=== PATIENT | male | born 1945 | race Caucasian/White ===

== ENCOUNTER 2020-04-23 12:16 | Emergency (ER) | payer MEDICARE, OTHER, SELFPAY ==
[2020-04-23 12:26] VITALS: BP 147/77; PULSE 74; RESP 18; TEMP 36.7; O2SAT 100
--- NOTE | 2020-04-23 12:54 | ED.GENADULT ---
HPI - General Adult General Chief complaint: Unspecified Stated complaint: swollen epiglottis Time Seen by Provider: 04/23/20 12:25 History of Present Illness HPI narrative: Patient is a 75-year-old male who presents to the ER with a swollen uvula. Reports its been swollen for 2 days. Worse yesterday than today. Causes discomfort with swallowing and feels like he needs to clear his throat frequently. Denies any other symptoms including sinus congestion/sore throat/productive cough/dyspnea. Reports son is a sick contact who recently tested negative for COVID-19. Otherwise no other sick contacts. No actual difficulty breathing or swallowing. Related Data Home Medications Medication Instructions Recorded Confirmed aspirin 81 mg tablet,delayed 81 mg PO DAILY 08/21/19 01/23/20 release atorvastatin 40 mg tablet 40 mg PO DAILY 08/21/19 01/23/20 carvedilol 6.25 mg tablet 6.25 mg PO Q12H 08/21/19 01/23/20 rivaroxaban 20 mg tablet 20 mg PO QPM 08/21/19 01/23/20 Allergies Allergy/AdvReac Type Severity Reaction Status Date / Time No Known Allergies Allergy Unknown Verified 04/23/20 12:29 Review of Systems Constitutional: Constitutional: Denies body ache(s), Denies chills and Denies fever(s) ENT: Denies sinus pain and Denies sore throat Comments: Swollen uvula Respiratory: Respiratory: Denies cough, Denies dyspnea and Denies stridor PMFSH Past Medical History Medical History (Updated 04/23/20 @ 13:31 by Garry Tim MD) CAD (coronary artery disease) Essential hypertension History of left heart catheterization Paroxysmal A-fib Pure hypercholesterolemia Type 2 diabetes mellitus Family History Family History (System 09/04/19 @ 08:01 by Elvira Ferrer) Father Diabetes mellitus Family history of congestive heart failure, Onset Age: 94 Family history of hearing loss, Onset Age: 94 Family history of cardiovascular disease Sibling Family history of alcoholism Family history of malignant neoplasm Family history of pancreatic cancer Mother Family history of cardiovascular disease Family history of congestive heart failure, Onset Age: 72 Other Cerebrovascular accident Family history of arthritis Social History Social History (System 09/04/19 @ 08:01 by Elvira Ferrer) Smoking status: Former smoker Smoking end date: 04/24/15 Alcohol intake: current Exam Narrative: Exam Narrative: GENERAL: Well-appearing, well-nourished, and in no acute distress. HEAD: Normocephalic, atraumatic. ENT: Mucous membranes moist. No pharyngeal erythema or tonsillar exam. Uvula midline but edematous. CHEST: Clear to auscultation. No respiratory distress. HEART: Regular rate and rhythm. Normal peripheral pulses. EXTREMITIES: Normal range of motion. No edema. NEURO: Alert and oriented x3. PSYCH: Normal mood and affect. Course Course Emergency Course: Patient received Decadron and was swab for Covid. Discharge home. Vital Signs Vital signs: Vital Signs Temperature 98.0 F 04/23/20 12:26 Pulse Rate 74 04/23/20 12:26 Respiratory Rate 18 04/23/20 12:26 Blood Pressure 147/77 H 04/23/20 12:26 Pulse Oximetry 100 04/23/20 12:26 Temperature 98.0 F 04/23/20 12:26 Pulse Rate 74 04/23/20 12:26 Respiratory Rate 18 04/23/20 12:26 Blood Pressure 147/77 H 04/23/20 12:26 Pulse Oximetry 100 04/23/20 12:26 Medical Decision Making Vital Signs Vital Signs: Vital Signs Temperature 98.0 F 04/23/20 12:26 Pulse Rate 74 04/23/20 12:26 Respiratory Rate 18 04/23/20 12:26 Blood Pressure 147/77 H 04/23/20 12:26 Pulse Oximetry 100 04/23/20 12:26 Temperature 98.0 F 04/23/20 12:26 Pulse Rate 74 04/23/20 12:26 Respiratory Rate 18 04/23/20 12:26 Blood Pressure 147/77 H 04/23/20 12:26 Pulse Oximetry 100 04/23/20 12:26 Lab Data Labs: Lab Results 04/23/20 Range/Units 13:01 SARS-CoV-2 RNA (RT-PCR) Pending Discharge
[2020-04-23 14:14] VITALS: BP 124/69; PULSE 69; RESP 20; O2SAT 99
[2020-04-23 21:48] LABS: SARS-CoV-2 RNA PCR Negative
== END 2020-04-23 14:17 | disposition home or self-care (01) ==
PROVIDERS: Emergency Provider Emergency Medicine; PCP Internal Medicine
DX: K12.2 Cellulitis and abscess of mouth (principal); Z20.828 Contact with and (suspected) exposure to other viral communicable diseases; I25.10 Atherosclerotic heart disease of native coronary artery without angina pectoris; I10 Essential (primary) hypertension; I48.91 Unspecified atrial fibrillation; E78.00 Pure hypercholesterolemia, unspecified; E11.9 Type 2 diabetes mellitus without complications; Z79.82 Long term (current) use of aspirin; Z79.01 Long term (current) use of anticoagulants; Z79.84 Long term (current) use of oral hypoglycemic drugs
CPT/HCPCS: 87635; 99283; C9803; J8540; U0003

== ENCOUNTER → 2021-03-15 10:52 | Outpatient (CLI) | payer MEDICARE, OTHER, SELFPAY ==
[2021-03-15 18:36] LABS: SARS-CoV-2 RNA PCR Negative
== END ==
PROVIDERS: PCP Internal Medicine; Visit Provider Internal Medicine
DX: J06.9 Acute upper respiratory infection, unspecified (principal); Z20.822 Contact with and (suspected) exposure to COVID-19
CPT/HCPCS: C9803; U0003; U0005

== ENCOUNTER → 2021-04-01 10:33 | Outpatient (CLI) | payer MEDICARE, OTHER, SELFPAY ==
--- NOTE | ~2021-04-01 | XR_ITS ---
EXAMINATION: XR chest 2V DATE: 04/01/2021 11:21 INDICATION: Anterior and central chest pain and chronic cough. TECHNIQUE: PA and lateral views of the chest were obtained. COMPARISON: Chest radiograph dated 11/26/2015 FINDINGS: The lungs remain clear with no focal airspace opacities, pulmonary edema, pleural effusion or pneumot horax. Mild cardiomegaly. There are bridging osteophytes at multiple levels in the spine, consistent with diffuse idiopathic skeletal hyperostosis (DISH). Old healed posterior left sixth rib fracture. IMPRESSION: 1. Cardiomegaly. Reviewed, dictated and finalized at location B. [facility] [employer] IMPRESSION: 1. Cardiomegaly.
== END ==
PROVIDERS: PCP Internal Medicine; Visit Provider Internal Medicine
DX: R05.9 Cough, unspecified (principal); I51.7 Cardiomegaly
CPT/HCPCS: 71046

== ENCOUNTER 2021-08-27 11:40 | Outpatient (CLI) | payer MEDICARE, OTHER, SELFPAY ==
--- NOTE | ~2021-08-27 | US_ITS ---
EXAMINATION: US pelvic limited INDICATION: Abnormal frequency of micturition TECHNIQUE: Targeted ultrasound of the bladder is performed. COMPARISON: None available FINDINGS: Prevoid bladder volume was 417.4 cc. Postvoid volume was 98.0 cc. The prostate is enlarged. There is mild wall thickening of the urinary bladder. Bilateral ureteral jets are seen. IMPRESSION: 1. Abnormal post void residual. 2. Mild wall thickening of the bladder could reflect cystitis or chronic outlet obstruction. Reviewed, dictated and finalized at location B.
== END 2021-08-27 11:41 | disposition home or self-care (01) ==
PROVIDERS: PCP Internal Medicine; Visit Provider Internal Medicine
DX: R35.0 Frequency of micturition (principal); R93.41 Abnormal radiologic findings on diagnostic imaging of renal pelvis, ureter, or bladder
CPT/HCPCS: 76857

== ENCOUNTER 2021-09-27 06:55 | Outpatient (CLI) | payer MEDICARE, OTHER, SELFPAY ==
--- NOTE | ~2021-09-27 | CT_ITS ---
EXAMINATION: CT abdomen pelvis wo/w con DATE: 09/27/2021 07:38 INDICATION: Microscopic hematuria TECHNIQUE: Computed tomography (CT) of the abdomen and pelvis was performed without and with 130 cc O mnipaque 300 intravenous contrast. The dose-length product was 1537.93 mGy-cm. Automated exposure con trol and iterative reconstruction technique were employed. KUB perform. COMPARISON: CT dated 02/21/2019. FINDINGS: There is a 4 mm left lower lobe nodule, unchanged from prior examination allowing for diffe rences of technique. There is calcified granuloma right lower lobe. The liver, spleen, pancreas, adrenal glands are unremarkable. Severely enlarged prostate gland. There is mild nonspecific stranding of the kidneys which is chronic. There are small low-density lesions i n the right kidney, most likely benign cysts. No ureteral stones or hydronephrosis. Ureters are addy l in course and caliber. Bladder wall is mildly thickened, likely due to underdistention. There is a punctate 2 mm nonobstructing right renal stone at the lower pole. Gallbladder is present. Nonobstruct leanna bowel gas pattern. Normal appendix. No significant vascular abnormality. No lymphadenopathy. 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 There are chronic compression fractures of L2 and L5. Generalized os teopenia. IMPRESSION: 1. Punctate 2 mm nonobstructing right nephrolithiasis. 2: Stable 4 mm left lower lobe nodule, likely benign. 3: Enlarged prostate gland. Reviewed, dictated and finalized at location B.
--- NOTE | ~2021-09-27 | XR_ITS ---
XR abdomen/kub 1V 09/27/2021 07:18 INDICATION: Microscopic hematuria TECHNIQUE: KUB COMPARISON: None FINDINGS: Bowel gas pattern is normal. Moderate colonic fecal loading. There is no evidence of free a ir, mass, organomegaly, ascites or obstruction. No abnormal calculi are seen. Bowel content obscures and limits evaluation of the kidneys for renal stones. The bones appear intact. Moderate lumbar spondylosis. IMPRESSION: 1: No acute abdominal abnormality identified. Reviewed, dictated and finalized at location B.
[2021-09-27 07:23] LABS: Estimated Glomerular Filt Rate > 60
== END 2021-09-27 06:56 | disposition home or self-care (01) ==
PROVIDERS: PCP Internal Medicine; Visit Provider Urology
DX: R31.29 Other microscopic hematuria (principal); N20.0 Calculus of kidney; R91.1 Solitary pulmonary nodule; N40.0 Benign prostatic hyperplasia without lower urinary tract symptoms
CPT/HCPCS: 74018; 74178; Q9967

== ENCOUNTER 2021-10-20 02:36 | Day surgery (SDC) | payer MEDICARE, OTHER, SELFPAY ==
[2021-10-19 16:34] VITALS: BMI 27.3
[2021-10-20 09:43] VITALS: BP 157/84; PULSE 67; RESP 18; TEMP 36.4; O2SAT 100; BMI 28.7
[2021-10-20 09:57] LABS: Basophils Percent Auto 0.6 % (0.2-1.2); Eosinophils Absolute Auto 0.3 K/mm3 (0-0.3); Eosinophils Percent Auto 3.9 % (0-4.4); Hematocrit 37.7 % (42.0-52.0); Hemoglobin 12.2 g/dL (14.0-18.0); Immature Granulocyte Absolute 0.06 K/mm3 (0.00-0.031); Immature Granulocyte Percent A 0.9 % (0-0.5); Immature Platelet Fraction Pct 5.1 % (0.9-11.2); Lymphocytes Absolute Auto 1.01 K/mm3 (0.9-3.2); Lymphocytes Percent Auto 15.7 % (18.3-44.2); Mean Corpuscular HGB Conc 32.4 g/dl (32-36); Mean Corpuscular Hemoglobin 31.6 pg (26-34); Mean Corpuscular Volume 97.7 fl (80-100); Mean Platelet Volume 10.5 fl (7.4-10.4); Monocytes Absolute Auto 0.5 K/mm3 (0.1-0.6); Monocytes Percent Auto 7.4 % (2.6-8.5); Neutrophils Absolute Auto 4.6 K/mm3 (1.3-6.7); Neutrophils Percent Auto 71.5 % (45.5-73.1); Platelet Count Result 134 k/mm3 (150-375); Red Blood Count 3.86 M/mm3 (4.6-6.20); Red Cell Distribution Width 16.5 % (11.5-14.5); White Blood Count 6.5 K/mm3 (4.5-10.0)
[2021-10-20 10:08] LABS: Anion Gap 3 mmol/L (8-16); Blood Urea Nitrogen 14 mg/dL (9-20); Calcium 8.1 mg/dL (8.4-10.2); Carbon Dioxide 30 mmol/L (22-30); Chloride 107 mmol/L (98-107); Estimated CRCL calculation 88 ml/min; Estimated Glomerular Filt Rate > 60; Glucose 114 mg/dL (65-110); Potassium 4.2 mmol/L (3.4-5.0); Sodium 140 mmol/L (137-145)
--- NOTE | 2021-10-20 10:30 | WPDMODSED ---
Moderate Sedation Note-Pt Data Patient Data Diagnosis: coronary artery disease with previous PCI declined LV EF Present Complaint: dyspnea/hypertension Procedure to be performed/Plan: left heart catheterization Allergies Allergy/AdvReac Type Severity Reaction Status Date / Time No Known Allergies Allergy Unknown Verified 10/20/21 10:18 Home Medications Medication Instructions Recorded Confirmed Type aspirin 81 mg tablet,delayed 81 mg PO DAILY 08/21/19 10/19/21 History release (Adult Low Dose Aspirin) carvedilol 6.25 mg tablet 6.25 mg PO Q12H 08/21/19 10/19/21 History rivaroxaban 20 mg tablet (Xarelto) 20 mg PO QPM 08/21/19 10/19/21 History acetaminophen 650 mg 650 mg PO Q8H PRN Pain 08/18/21 10/19/21 History tablet,extended release (Tylenol 8 Hour) atorvastatin 40 mg tablet 40 mg PO DAILY #90 tabs 08/30/21 10/19/21 Rx metformin 500 mg tablet See Rx Instructions .Route 08/30/21 10/19/21 Rx .COMPLEX #180 tabs tamsulosin 0.4 mg capsule (Flomax) 0.4 mg PO DAILY #30 caps 08/30/21 10/19/21 Rx omeprazole 40 mg capsule,delayed 40 mg PO DAILY #90 caps 09/29/21 10/19/21 Rx release losartan 50 mg tablet 100 mg PO DAILY 10/19/21 10/19/21 History Current Medications: Active Medications Sodium Chloride (Normal Saline Iv) 500 mls @ 100 mls/hr IV CONT .Q5H RADHA Sedation/Anesthesia: No previous sedation/anesthesia problems (including family history). [facility] Past Medical History Medical History (Updated 08/18/21 @ 09:49 by Glen Bolanos MD) CAD (coronary artery disease) Essential hypertension History of left heart catheterization Paroxysmal A-fib Pure hypercholesterolemia Type 2 diabetes mellitus Family History Family History (System 09/04/19 @ 08:01 by Elvira Ferrer) Father Diabetes mellitus Family history of congestive heart failure, Onset Age: 94 Family history of hearing loss, Onset Age: 94 Family history of cardiovascular disease Sibling Family history of alcoholism Family history of malignant neoplasm Family history of pancreatic cancer Mother Family history of cardiovascular disease Family history of congestive heart failure, Onset Age: 72 Other Cerebrovascular accident Family history of arthritis Social History Social History (Updated 04/06/21 @ 08:43 by Annetta Mcguire) Smoking packs per day: 2 Smoking cigarettes per day: 40.0 Years smoked: 20 Smoking pack-years: 40.00 Smoking status: Unknown if ever smoked Tobacco type: cigars Smoking end date: 04/24/15 Alcohol intake: current Drinks per week: 7 Alcohol use details: social Substance use: never Substance use type: does not use Living arrangements: with family Spiritual care concerns: No Mod Sed Physical Exam Physical Exam Pre Procedural Exam: Normal: Appearance, Neck, Throat, Airway, Lungs, Heart Size, Heart Rate, Heart Rhythm, Neuro Exam and Extremities Hours since solid foods: 12 Hours since liquid intake: 12 Mallampati Classification: class II Internal Medicine - PN: Obj Da Vital Signs Vital Signs: Vital Signs - 24 hr 10/20/21 09:43 Temperature 36.4 C L Pulse Rate 67 Respiratory Rate 18 Blood Pressure 157/84 H Pulse Oximetry 100 Oxygen Delivery Room Air Meds/Results Medications: Active Medications Generic Name Dose Route Start Last Admin Trade Name Jamesq PRN Reason Stop Dose Admin Sodium Chloride 500 mls @ 100 mls/hr 10/20/21 08:30 Normal Saline Iv IV CONT .Q5H RADHA Labs CBC & Chem 7: 10/20/21 09:50 10/20/21 09:50 Labs: Laboratory Results - last 24 hr 10/20/21 10/20/21 09:50 09:50 WBC 6.5 RBC 3.86 L Hgb 12.2 L Hct 37.7 L MCV 97.7 MCH 31.6 MCHC 32.4 RDW 16.5 H Plt Count 134 L MPV 10.5 H Immature Gran % (Auto) 0.9 H Neut % (Auto) 71.5 Lymph % (Auto) 15.7 L [place] % (Auto) 7.4 Eos % (Auto) 3.9 Baso % (Auto) 0.6 Lymph # (Auto) 1.01 [place] # (Auto) 0
--- NOTE | 2021-10-20 11:20 | WPDCARDPROC ---
Cardiac Cath Procedure Note Date of procedure:: 10/20/21 Performing physician:: Jefe Martinez MD Indication:: left ventricular systolic dysfunction previous PCI paroxysmal atrial fib Brief clinical history:: this is a 76-year-old patient with history of coronary disease previous stenting of the LAD and of the right coronary artery in the remote past. He also has history of paroxysmal atrial fib and is in sinus rhythm. He has been reporting symptoms of some dyspnea and there has been a decline in his LV function which was previously normal and there is about 35% ejection fraction now by echo. In this setting follow-up angiogram to assess the status of his coronary arteries has been recommended Procedure Procedure performed:: left ventriculogram coronary angiogram Angio-Seal Sedation/Medication given:: fentanyl 50 mg Versed 2 mg case start time 10:59 a.m. case end time 11:15 a.m. Access site:: right femoral artery Estimated blood loss:: 25 cc Procedure note:: patient was brought to the cardiac state where the right cleared draped in the normal fashion. Anesthesia was provided with 1% lidocaine infiltrated locally. Using the modified Seldinger technique femoral artery was punctured and a 5 Tristanian vascular sheath was placed. After this I used a 5 Tristanian angled pigtail catheter to measure left-sided hemodynamics and to inject LV g in the are AO projection. Following this I used a 5 Tristanian FL4 catheter to engage inject the left coronary artery multiple projections and then a 5 Tristanian JR4 catheter 8 inject the right coronary artery. The case was then terminated an angiogram was done of the femoral artery through the sheath after which a 6 Tristanian Angio-Seal device was used to provide hemostasis. There was a good result he tolerated the procedure well there were no complications. There was no evidence of groin hematoma upon leaving the cardiac catheterization lab. Findings:: Hemodynamics: Central aortic pressure is 164 over 76 left ventricle 164 to end diastolic pressure 22 there is no gradient on pullback across the aortic valve. Left ventricle: The LV is mildly dilated. There is global systolic dysfunction without regional wall motion abnormality. The estimated ejection fraction is about 35%. Mitral valve appears to be competent. The left main coronary artery is a large caliber and nicely patent the left anterior descending is a moderate to large size artery extending down to around the apex. The LAD is nicely patent without any stenosis. The stented segment shows no loss of lumen. There is a proximal small diagonal branch that has about 70% proximal stenosis. The circumflex is a moderate caliber artery giving marginal branches the circumflex system is smooth and angiographically normal in appearance the right coronary artery is large in caliber and dominant to the posterior circulation. Right coronary artery angiographically is widely patent. There is stent material visible in the mid RCA which remains widely patent with no loss of lumen. Conclusion:: 1. Coronary artery disease with right coronary dominant circulation previous stents into the LAD and right coronary artery remains nicely patent. No significant coronary lesions currently 2. global left ventricular systolic dysfunction 3. Angio-Seal to right femoral artery Jefe Martinez MD FACC
[2021-10-20 11:34] VITALS: BP 158/76; PULSE 57; RESP 15; O2SAT 96
[2021-10-20 11:45] VITALS: BP 149/79; PULSE 55; RESP 15; O2SAT 99
[2021-10-20 12:00] VITALS: BP 156/78; PULSE 56; RESP 15; O2SAT 95
[2021-10-20 12:15] VITALS: BP 159/71; PULSE 56; RESP 15; O2SAT 98
--- NOTE | 2021-10-20 13:10 | SUR.PHASEII ---
Pt resting in bed with HOB elevated, tolerating well, no bleeding or hematoma noted.
[2021-10-20 13:11] VITALS: BP 163/75; PULSE 50; RESP 16; O2SAT 99
== END 2021-10-20 14:13 | disposition home or self-care (01) ==
PROVIDERS: PCP Internal Medicine; Visit Provider Specialist
PROC: 4A023N7 Measurement of Cardiac Sampling and Pressure, Left Heart, Percutaneous Approach (ICD-10-PCS; CPT 93452; principal; 2021-10-20 10:00)
DX: I11.9 Hypertensive heart disease without heart failure (principal); R93.1 Abnormal findings on diagnostic imaging of heart and coronary circulation; R06.00 Dyspnea, unspecified; I48.0 Paroxysmal atrial fibrillation; I25.10 Atherosclerotic heart disease of native coronary artery without angina pectoris; E11.9 Type 2 diabetes mellitus without complications; E78.00 Pure hypercholesterolemia, unspecified; Z95.5 Presence of coronary angioplasty implant and graft; Z79.01 Long term (current) use of anticoagulants; Z79.82 Long term (current) use of aspirin; Z79.84 Long term (current) use of oral hypoglycemic drugs; Z87.891 Personal history of nicotine dependence
CPT/HCPCS: 36415; 80048; 85025; 85055; 93458; C1760; C1887; C1894; G0269; J2250; J3010; J7040

== ENCOUNTER 2022-02-17 00:01 | Day surgery (SDC) | payer MEDICARE, OTHER, SELFPAY ==
[2022-02-08 10:46] VITALS: BMI 26.5
--- NOTE | 2022-02-17 06:43 | PM.HPGS ---
History of Present Illness History of Present Illness Consent: Risks, benefits, and alternatives have been discussed and questions answered. Patient agrees to proceed with procedure. Chief complaint: neoplasm screening Narrative: Oscar Hopkins is a 76 year old male Referred for colon cancer screening. He had an unremarkable colonoscopy 10 years ago. There is a strong family history of pancreatic cancer. Review of Systems Review of Systems: All systems reviewed & are unremarkable except as noted in HPI and below PMFSH Past Medical History Medical History CAD (coronary artery disease) Essential hypertension History of left heart catheterization Paroxysmal A-fib Pure hypercholesterolemia Type 2 diabetes mellitus Family History Family History Father Diabetes mellitus Family history of congestive heart failure, Onset Age: 94 Family history of hearing loss, Onset Age: 94 Family history of cardiovascular disease Sibling Family history of alcoholism Family history of malignant neoplasm Family history of pancreatic cancer Mother Family history of cardiovascular disease Family history of congestive heart failure, Onset Age: 72 Other Cerebrovascular accident Family history of arthritis Social History Social History Smoking packs per day: 2 Smoking cigarettes per day: 40.0 Years smoked: 20 Smoking pack-years: 40.00 Smoking status: Former smoker Tobacco type: cigars Smoking end date: 04/24/15 Additional smoking assessment comments: OCC. CIGAR STILL Alcohol intake: current Drinks per week: 3 Alcohol use details: DRINKS OZ. SCOTCH Substance use: never Substance use type: does not use Living arrangements: with family Spiritual care concerns: No Meds Home Medications and Allergies Home Medications Medication Instructions Recorded Confirmed Type aspirin 81 mg tablet,delayed 81 mg PO DAILY 08/21/19 02/08/22 History release (Adult Low Dose Aspirin) carvedilol 6.25 mg tablet 25 mg PO Q12H 08/21/19 02/08/22 History rivaroxaban 20 mg tablet (Xarelto) 20 mg PO QPM 08/21/19 02/08/22 History acetaminophen 650 mg 650 mg PO Q8H PRN Pain 08/18/21 02/08/22 History tablet,extended release (Tylenol 8 Hour) atorvastatin 40 mg tablet 40 mg PO DAILY #90 tabs 08/30/21 02/08/22 Rx metformin 500 mg tablet See Rx Instructions .Route 08/30/21 02/08/22 Rx .COMPLEX #180 tabs omeprazole 40 mg capsule,delayed 40 mg PO DAILY #90 caps 09/29/21 02/08/22 Rx release Vitamin D3 1 cap PO DAILY 02/08/22 02/08/22 History cyanocobalamin (vitamin B-12) 1,000 mcg PO DAILY 02/08/22 02/08/22 History 1,000 mcg tablet (Vitamin B-12) sacubitril 49 mg-valsartan 51 mg 1 tablet PO BID 02/08/22 02/08/22 History tablet (Entresto) tamsulosin 0.4 mg capsule (Flomax) 0.4 mg PO DAILY #90 caps 02/21/22 Rx Allergies Allergy/AdvReac Type Severity Reaction Status Date / Time No Known Allergies Allergy Unknown Verified 02/17/22 08:23 Exam Resp: Auscultation: clear to auscultation bilaterally Cardio: Rate: regular rate Rhythm: regular rhythm GI: GI Palp: Yes Soft to palpation and No Tenderness to palpation present (GI) Assessment and Plan Assessment and plan (1) Colon cancer screening: Code(s): Z12.11 - Encounter for screening for malignant neoplasm of colon Status: Acute Assessment and Plan: Colonoscopy with possible biopsy or polypectomy or cautery or injection of substances.
[2022-02-17 08:24] VITALS: BP 155/69; PULSE 61; RESP 16; TEMP 36.3; O2SAT 98; BMI 26.8
[2022-02-17] MEDS: LACTATED RINGERS 1,000 ML 150 ML IV CONT (08:39)
[2022-02-17 08:42] LABS: Glucose Point of Care 118 mg/dl (65-105)
--- NOTE | 2022-02-17 08:55 | WPDANESEPPF ---
Anes - Initial Pre Proc Eval Procedure: Operation Date: 02/17/22 09:30 Proposed Procedures p Screening Colonoscopy - Mark Tobar MD Date/Time: 02/17/22 08:55 Surgeon: Mark Tobar MD Pre Op Diagnosis: neoplasm screening Patient Data Age: 76 Gender: M Height: 1.75 m Weight: 82.4 kg Last Vital Signs Temp 97.4 F L 02/17/22 08:24 Pulse 61 02/17/22 08:24 Resp 16 02/17/22 08:24 BP 155/69 H 02/17/22 08:24 Pulse Ox 98 02/17/22 08:24 O2 Del Method Room Air 02/17/22 08:24 Allergies Allergy/AdvReac Type Severity Reaction Status Date / Time No Known Allergies Allergy Unknown Verified 02/17/22 08:23 Home Medications Medication Instructions Recorded Confirmed Type aspirin 81 mg tablet,delayed 81 mg PO DAILY 08/21/19 02/08/22 History release (Adult Low Dose Aspirin) carvedilol 6.25 mg tablet 25 mg PO Q12H 08/21/19 02/08/22 History rivaroxaban 20 mg tablet (Xarelto) 20 mg PO QPM 08/21/19 02/08/22 History acetaminophen 650 mg 650 mg PO Q8H PRN Pain 08/18/21 02/08/22 History tablet,extended release (Tylenol 8 Hour) atorvastatin 40 mg tablet 40 mg PO DAILY #90 tabs 08/30/21 02/08/22 Rx metformin 500 mg tablet See Rx Instructions .Route 08/30/21 02/08/22 Rx .COMPLEX #180 tabs omeprazole 40 mg capsule,delayed 40 mg PO DAILY #90 caps 09/29/21 02/08/22 Rx release Vitamin D3 1 cap PO DAILY 02/08/22 02/08/22 History cyanocobalamin (vitamin B-12) 1,000 mcg PO DAILY 02/08/22 02/08/22 History 1,000 mcg tablet (Vitamin B-12) sacubitril 49 mg-valsartan 51 mg 1 tablet PO BID 02/08/22 02/08/22 History tablet (Entresto) tamsulosin 0.4 mg capsule (Flomax) 0.4 mg PO DAILY #30 caps 10/24/22 10/27/22 Rx Laboratory Tests 02/17/22 08:37 POC Capillary Glucose 118 mg/dl H mg/dl (65-105) Patient hx anesthesia problems: none Family hx anesthesia problems: none Results Review: All pre-operative results and documents have been reviewed as part of the pre-operative evaluation. [facility] Past Medical History Medical History (Updated 02/17/22 @ 06:44 by Mark Tobar MD) CAD (coronary artery disease) Essential hypertension History of left heart catheterization Paroxysmal A-fib Pure hypercholesterolemia Type 2 diabetes mellitus Family History Family History (System 09/04/19 @ 08:01 by Elvira Ferrer) Father Diabetes mellitus Family history of congestive heart failure, Onset Age: 94 Family history of hearing loss, Onset Age: 94 Family history of cardiovascular disease Sibling Family history of alcoholism Family history of malignant neoplasm Family history of pancreatic cancer Mother Family history of cardiovascular disease Family history of congestive heart failure, Onset Age: 72 Other Cerebrovascular accident Family history of arthritis Social History Social History (Updated 04/06/21 @ 08:43 by Annetta Mcguire) Smoking packs per day: 2 Smoking cigarettes per day: 40.0 Years smoked: 20 Smoking pack-years: 40.00 Smoking status: Former smoker Tobacco type: cigars Smoking end date: 04/24/15 Additional smoking assessment comments: OCC. CIGAR STILL Alcohol intake: current Drinks per week: 3 Alcohol use details: DRINKS OZ. SCOTCH Substance use: never Substance use type: does not use Living arrangements: with family Spiritual care concerns: No Anes - Eval Final PreProcedure Day of Procedure 02/17/22 08:55 Patient weight: overweight Heart: regular rate and rhythm Lungs: clear to auscultation Airway: Mallampati scale class II Neurological: alert and oriented Last oral intake: >/= 8 hours ASA classification: III Emergent: no Anesthetic plan: proceed Anesthesia type and monitoring: general GIVS and standard monitoring Results Review: All pre-operative results and documents have been reviewed as part of the pre-operative evaluation. Informed Consent: The patient's anesthetic plan and its att
[2022-02-17 09:30] VITALS: BP 117/52; PULSE 53; RESP 15; O2SAT 98
[2022-02-17 09:40] VITALS: BP 145/72; PULSE 57; RESP 18; O2SAT 99
[2022-02-17 09:50] VITALS: BP 145/76; PULSE 57; RESP 16; O2SAT 99
== END 2022-02-17 09:58 | disposition home or self-care (01) ==
PROVIDERS: PCP Internal Medicine; Visit Provider Internal Medicine Gastroenterology
PROC: 0DJD8ZZ Inspection of Lower Intestinal Tract, Via Natural or Artificial Opening Endoscopic (ICD-10-PCS; CPT 45378; principal; 2022-02-17 09:30)
DX: Z12.11 Encounter for screening for malignant neoplasm of colon (principal); K63.5 Polyp of colon; K64.8 Other hemorrhoids; I10 Essential (primary) hypertension; I48.0 Paroxysmal atrial fibrillation; E11.9 Type 2 diabetes mellitus without complications; E78.00 Pure hypercholesterolemia, unspecified; I25.10 Atherosclerotic heart disease of native coronary artery without angina pectoris; Z72.0 Tobacco use; Z79.01 Long term (current) use of anticoagulants; Z79.84 Long term (current) use of oral hypoglycemic drugs; Z79.82 Long term (current) use of aspirin
CPT/HCPCS: 45380; 82948; 88305; J2704; J7120

== ENCOUNTER 2022-05-16 14:06 | Emergency (ER) | payer MEDICARE, OTHER, SELFPAY ==
[2022-05-16 14:26] VITALS: BP 133/67; PULSE 92; RESP 16; TEMP 36.7; O2SAT 96
--- NOTE | 2022-05-16 16:09 | ED.LOWEXIN ---
HPI - Extremity Injury (Lower) General Chief Complaint: Extremity Injury, Lower Stated Complaint: L. leg pain Time Seen by Provider: 05/16/22 15:27 Source: patient Mode of arrival: ambulatory Limitations: no limitations History of Present Illness HPI Narrative: This 77 year old male patient with significant PMH of Chronic Xarelto therapy presents to the ER for complaints of hitting his left thigh on the mirror of his car two days ago. He has had swelling and a hard knot in that area ever since. He has no distal numbness or tingling and no change in sensation or temperature of the skin. He has normal AROM. No other complaints and no other symptoms. Onset (ago): day(s) (2) Injury: Left: thigh Type of Injury: blunt Place: home Severity: mild Relieving factors: cold therapy Exacerbating factors: movement Context: direct blow Other symptoms: none Treatments prior to arrival: cold therapy, heart therapy and NSAIDS Related Data Home Medications Medication Instructions Recorded Confirmed aspirin 81 mg tablet,delayed 81 mg PO DAILY 08/21/19 05/09/22 release (Adult Low Dose Aspirin) carvedilol 6.25 mg tablet 25 mg PO Q12H 08/21/19 05/09/22 rivaroxaban 20 mg tablet (Xarelto) 20 mg PO QPM 08/21/19 05/09/22 acetaminophen 650 mg 650 mg PO Q8H PRN Pain 08/18/21 05/09/22 tablet,extended release (Tylenol 8 Hour) sacubitril 49 mg-valsartan 51 mg 1 tablet PO BID 02/08/22 05/09/22 tablet (Entresto) cyanocobalamin (vitamin B-12) 1,000 mcg PO DAILY 05/05/22 05/09/22 1,000 mcg capsule Allergies Allergy/AdvReac Type Severity Reaction Status Date / Time No Known Allergies Allergy Unknown Verified 05/16/22 15:26 Review of Systems Review of Systems: All systems reviewed & are unremarkable except as noted in HPI and below PMFSH Past Medical History Medical History CAD (coronary artery disease) Essential hypertension History of left heart catheterization Paroxysmal A-fib Pure hypercholesterolemia Type 2 diabetes mellitus Family History Family History Father Diabetes mellitus Family history of congestive heart failure, Onset Age: 94 Family history of hearing loss, Onset Age: 94 Family history of cardiovascular disease Sibling Family history of alcoholism Family history of malignant neoplasm Family history of pancreatic cancer Mother Family history of cardiovascular disease Family history of congestive heart failure, Onset Age: 72 Other Cerebrovascular accident Family history of arthritis Social History Social History Smoking packs per day: 2 Smoking cigarettes per day: 40.0 Years smoked: 20 Smoking pack-years: 40.00 Smoking status: Former smoker Tobacco type: cigarettes and cigars Smoking end date: 04/24/15 Additional smoking assessment comments: OCC. CIGAR STILL Alcohol intake: current Drinks per week: 5 Alcohol use details: DRINKS OZ. SCOTCH Substance use: never Substance use type: does not use Lack of Transportation: No Lack of Food: Never True Current Housing: I Have Housing Concerned About Future Housing: No Difficulty Paying Gas/Electric Bills: No Difficulty Paying for Meds: No Currently Unemployed: No Education: Master's Degree or Higher Difficulty w/ Childcare or Family Care: No Living arrangements: with family Spiritual care concerns: No Exam Const: General: healthy appearing, no acute distress and alert Nutritional Appearance: well nourished Orientation/consciousness: patient oriented x3 Limitations: no limitations HENMT: Head: normal to inspection Ears: external ears normal and TM's normal bilaterally Mouth: Yes Normal oral and palatal mucosa present Eyes: Conjunctivae: conjunctivae normal Neck: Neck: normal visual inspection and no lymphadenopathy
== END 2022-05-16 16:32 | disposition home or self-care (01) ==
PROVIDERS: Emergency Provider Nurse Practitioner Adult Health; PCP Internal Medicine
DX: S70.12XA Contusion of left thigh, initial encounter (principal); I10 Essential (primary) hypertension; I48.0 Paroxysmal atrial fibrillation; I25.10 Atherosclerotic heart disease of native coronary artery without angina pectoris; E78.00 Pure hypercholesterolemia, unspecified; E11.9 Type 2 diabetes mellitus without complications; F17.290 Nicotine dependence, other tobacco product, uncomplicated; Z79.01 Long term (current) use of anticoagulants; Z79.82 Long term (current) use of aspirin; Z79.84 Long term (current) use of oral hypoglycemic drugs; W22.8XXA Striking against or struck by other objects, initial encounter
CPT/HCPCS: 99283

== ENCOUNTER 2023-08-14 09:05 | Outpatient (CLI) | payer MEDICARE, OTHER, SELFPAY ==
--- NOTE | ~2023-08-14 | XR_ITS ---
XR hip RT 2V w AP pelvis 08/14/2023 09:20 Indication: Right hip pain Procedure: AP pelvis and 2 views right hip Comparison: 05/09/2022 Findings: There is mild osteoarthritis of the hips. There is lower lumbar spondylosis. Pelvic rings a re intact. Sacral foramen are symmetric. No acute fracture or traumatic malalignment. There is lower lumbar spondylosis. Impression: 1: Mild symmetric osteoarthritis of the hips. Reviewed, dictated and finalized at location B. Impression: 1: Mild symmetric osteoarthritis of the hips.
== END 2023-08-14 09:06 | disposition home or self-care (01) ==
LOC: ANHIMG 09:08
PROVIDERS: PCP Nurse Practitioner Family; Visit Provider Nurse Practitioner Family
DX: M16.0 Bilateral primary osteoarthritis of hip (principal)
CPT/HCPCS: 73502